=== PATIENT | female | born 1970 | race Caucasian/White ===

== ENCOUNTER → 2023-11-18 | Outpatient (CLI) | payer OTHER, SELFPAY ==
--- NOTE | 2023-11-18 11:25 | RAD_ITS ---
INDICATION: LUMBAR SPRAIN EXAMINATION/TECHNIQUE: X-RAY - XR Spine Lumbar 2 or 3 Views COMPARISON: No relevant prior comparison study available FINDINGS: VERTEBRAE: Preserved vertebral body height. No fracture. No spondylolisthesis. Preservation of the normal lumbar lordosis. No significant facet arthropathy. DISCS: Minimal narrowing of L4-L5 and mild narrowing of L5-S1 disc space. Mild endplate spondylosis at the level of L5-S1. INCLUDED ABDOMEN: Included bowel gas pattern is non-obstructive. RAD/Lumbar Spine 2 or 3 Views IMPRESSION: Mild degenerative changes. Electronically Signed: Boyd Kauffman MD at 11:42 EST ,
== END | disposition home or self-care (01) ==
LOC: RAD 11:23
PROVIDERS: PCP Internal Medicine; Referring Provider Chiropractor; Visit Provider Chiropractor
DX: S33.5XXA Sprain of ligaments of lumbar spine, initial encounter (principal); X58.XXXA Exposure to other specified factors, initial encounter
CPT/HCPCS: 72100